=== PATIENT | female | born 2000 | race African-American/Black ===

== ENCOUNTER 2021-04-23 20:00 | Emergency (ER) | payer BC, SELFPAY ==
--- NOTE | ~2021-04-23 | CT_ITS ---
EXAMINATION: CT abdomen pelvis w con EXAM DATE: 04/23/2021 21:16 INDICATION: Diffuse abdominal pain worse RLQ. TECHNIQUE: Spiral CT of the abdomen and pelvis was performed following intravenous injection of 100 m L Omnipaque 350. Axial, coronal and sagittal images of the abdomen and pelvis were reviewed. The do se-length product (DLP) for this examination was 360.49 mGy-cm. The exposure was tailored according to patient size (auto mA exposure control), and iterative reconstruction (ASIR) was used as additiona l dose reduction technique. There is no prior study for comparison. FINDINGS: The liver, spleen, adrenal glands and pancreas are unremarkable. The gallbladder is contra cted but otherwise unremarkable. Portal and splenic veins are patent. Kidneys enhance symmetrically . There is no hydronephrosis. The uterus is retroverted and morphologically normal. Small amount o f free fluid likely physiologic. The bladder is unremarkable. There is no retroperitoneal or pelvic lymphadenopathy. Possible identification of an unremarkable appendix. No pericecal inflammation. The stomach and smal l bowel are unremarkable. There is expected amount of colonic stool. No free intraperitoneal gas. The heart is normal in size. There are no pericardial or pleural effusions. The lung bases are un remarkable. There are no osteoblastic or osteolytic lesions identified. IMPRESSION: 1. No acute intra-abdominal findings. Reviewed, dictated and finalized at location A.
[2021-04-23 20:05] VITALS: BP 124/73; PULSE 74; RESP 18; TEMP 37.3; O2SAT 100
[2021-04-23 20:10] VITALS: BP 124/73; PULSE 74; RESP 18; TEMP 37.3; O2SAT 98
[2021-04-23 20:33] LABS: Basophils Percent Auto 0.1 % (0.2-1.2); Eosinophils Absolute Auto 0.1 K/mm3 (0-0.3); Eosinophils Percent Auto 0.5 % (0-4.4); Immature Granulocyte Absolute 0.21 K/mm3 (0.00-0.031); Immature Granulocyte Percent A 1.4 % (0-0.5); Lymphocytes Absolute Auto 3.59 K/mm3 (0.9-3.2); Lymphocytes Percent Auto 24.4 % (18.3-44.2); Mean Corpuscular HGB Conc 31.4 g/dl (32-36); Mean Corpuscular Volume 85.8 fl (80-100); Mean Platelet Volume 11.5 fl (7.4-10.4); Monocytes Absolute Auto 1.3 K/mm3 (0.1-0.6); Monocytes Percent Auto 8.5 % (2.6-8.5); Neutrophils Absolute Auto 9.6 K/mm3 (1.3-6.7); Neutrophils Percent Auto 65.1 % (45.5-73.1); Platelet Count Result 229 k/mm3 (150-375); Red Blood Count 4.08 M/mm3 (4.2-5.4); White Blood Count 14.7 K/mm3 (4.5-10.0)
[2021-04-23 20:41] LABS: Add Urine Microscopic? NO; Appearance Urine Clear (Clear); Bilirubin Urine Negative (Negative); Blood Urine Negative (Negative); Color Urine Yellow (Yellow); Glucose Urine UA Negative (Negative); Ketones Urine Negative (Negative); Leukocyte Esterase Ur Negative LEU/UL (Negative); Nitrate Urine Negative (Negative); Protein Urine Negative (Negative); Specific Grav Ur 1.016 (1.001-1.035); Urobilinogen Urine Negative mg/dL (<2.0)
--- NOTE | 2021-04-23 20:41 | ED.ABDPAIN ---
HPI - Abdominal Pain General Chief Complaint: Abdominal Pain Stated Complaint: abd pain Time Seen by Provider: 04/23/21 20:22 Source: patient and RN notes reviewed Mode of arrival: ambulatory Limitations: no limitations History of Present Illness HPI narrative: This is a 21 year old female who presents for evaluation of diffuse abdominal pain for 2 days. She reports her pain is constant and nonradiating. She denies associated nausea, vomiting, fever, diarrhea, constipation or urinary symptoms. She has not taken any thing for pain. Her is worse with palpation. Pain 5/10. She is currently on steroids for chronic chest pain. Related Data Home Medications Medication Instructions Recorded Confirmed prednisone 20 mg PO BID 04/23/21 04/23/21 Allergies Allergy/AdvReac Type Severity Reaction Status Date / Time No Known Allergies Allergy Verified 04/23/21 20:13 Review of Systems Review of Systems: All systems reviewed & are unremarkable except as noted in HPI and below Constitutional: Constitutional: Denies chills and Denies fever(s) Cardiovascular: Cardiovascular: Denies chest pain Respiratory: Respiratory: Denies dyspnea Gastrointestinal: Gastrointestinal: Reports abdominal pain PMFSH Past Medical History Medical History (Updated 04/24/21 @ 00:00 by Cintia Velarde) Chronic chest pain Patient denies medical problems Surgical History Surgical History (Updated 04/23/21 @ 20:41 by Tia Conroy MD) No pertinent past surgical history Social History Social History (Updated 04/23/21 @ 20:41 by Tia Conroy MD) Smoking status: Never smoker Gender identity (if verbalized by the patient): Female Exam Const: General: no acute distress and alert Orientation/consciousness: patient oriented x3 Eyes: EOM: EOMs intact bilaterally Resp: Effort & Inspection: normal respiratory effort and no retractions Auscultation: clear to auscultation bilaterally Cardio: Rate: regular rate Rhythm: regular rhythm Heart sounds: no murmurs GI: GI Palp: Yes Soft to palpation, Yes Tenderness to palpation present (GI) (Diffuse worse in RLQ), No Guarding due to palpation present (GI) and No Rigid due to palpation Auscultation: normal bowel sounds Skin: General skin exam: normal color Rashes: no rashes Neuro: General: patient oriented x3, moves all extremities and CN's II-XI intact bilaterally Psych: Mental Status: mental status grossly normal Affect: normal affect Course Reevaluation(s) Reevaluation #1: I Discussed with patient that CT was unremarkable. Labs have some leukocytosis with may be due to steroids. She has no other questions or concerns. Date: 04/23/21 Time: 22:20 Vital Signs Vital signs: Vital Signs Temperature 99.1 F 04/23/21 20:05 Pulse Rate 74 04/23/21 20:05 Respiratory Rate 18 04/23/21 20:05 Blood Pressure 124/73 04/23/21 20:05 Pulse Oximetry 100 04/23/21 20:05 Temperature 99.1 F 04/23/21 20:10 Pulse Rate 74 04/23/21 20:10 Respiratory Rate 18 04/23/21 20:10 Blood Pressure 124/73 04/23/21 20:10 Pulse Oximetry 98 04/23/21 20:10 MDM - Abdominal Pain Lab Data Attestation: I reviewed the patient's lab results. Result diagrams: 04/23/21 20:24 04/23/21 20:24 Labs: Lab Results 04/23/21 04/23/21 04/23/21 Range/Units 20:24 20:24 20:25 WBC 14.7 H (4.5-10.0) K/mm3 RBC 4.08 L (4.2-5.4) M/mm3 Hgb 11.0 L (12.0-15.0) g/dL Hct 35.0 L (37.0-47.0) % MCV 85.8 (80-100) fl MCH 27.0 (26-34) pg MCHC 31.4 L (32-36) g/dl RDW 13.0 (11.5-14.5) % Plt Count 229 (150-375) k/mm3 MPV 11.5 H (7.4-10.4) fl Immature Gran % (Auto) 1.4 H (0-0.5) % Neut % (Auto) 65.1 (45.5-73.1) % Lymph % (Auto) 24.4 (18.3-44.2) % Garden % (Auto) 8.5 (2.6-8.5) % Eos % (Auto) 0.5 (0-4.4) % Baso % (Auto) 0.1 L (0.2-1.2) % Lymph # (Auto) 3.59 H (0.9
[2021-04-23 20:43] LABS: Alanine Aminotransferase 23 U/L (4-35); Albumin Level 3.8 g/dL (3.5-5.1); Alkaline Phosphatase 67 U/L (38-126); Anion Gap 10 mmol/L (8-16); Aspartate Amino Transferase 20 U/L (14-36); Bilirubin,Total 0.3 mg/dL (0.2-1.3); Blood Urea Nitrogen 10 mg/dL (7-17); Carbon Dioxide 25 mmol/L (22-30); Chloride 102 mmol/L (98-107); Estimated CRCL calculation 109 ml/min; Estimated Glomerular Filt Rate > 60; Glucose 114 mg/dL (65-110); Lipase 315 U/L (23-300); Potassium 3.8 mmol/L (3.4-5.0); Sodium 137 mmol/L (137-145)
[2021-04-23] MEDS: LACTATED RINGERS 1,000 ML 999 ML IV CONT (20:51)
== END 2021-04-23 22:44 | disposition home or self-care (01) ==
PROVIDERS: Emergency Medicine; Emergency Provider General Practice
DX: R10.9 Unspecified abdominal pain (principal)
CPT/HCPCS: 36415; 74177; 80053; 81003; 81025; 83690; 85025; 96360; 99284; J7120; Q9967